=== PATIENT | male | born 1975 | race American Indian/Alaskan Native ===

== ENCOUNTER 2017-04-02 17:13 | Emergency (ER) | payer OTHER, MEDICAID ==
[2017-04-02 17:24] VITALS: TEMP 98.4
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
[2017-04-02 18:50] VITALS: BP 112/71; PULSE 92; RESP 16; O2SAT 95
== END 2017-04-02 18:50 | disposition home or self-care (01) ==
LOC: EDUNIT#
DX: S61.211A Laceration without foreign body of left index finger without damage to nail, initial encounter (principal); S60.221A Contusion of right hand, initial encounter; F17.200 Nicotine dependence, unspecified, uncomplicated; V18.2XXA Unspecified pedal cyclist injured in noncollision transport accident in nontraffic accident, initial encounter

== ENCOUNTER 2017-08-23 14:50 | Emergency (ER) | payer MEDICAID, OTHER ==
[2017-08-23 15:00] VITALS: BP 126/77; PULSE 87; RESP 18; TEMP 98.4; O2SAT 97
--- NOTE | 2017-08-23 15:05 | EDPHY ---
H & P Time Seen by Provider: 08/23/17 15:00 HPI/ROS: HPI Alcohol intoxication. 42-year-old male with [employer] police. Brought in for alcohol intoxication. No history of assault. Acting belligerent with police initially. Has come down since being in the emergency department. He states he he has been drinking hard liquor all day. He is ambulatory in our emergency department. Denies other complaints. ROS: Constitutional: No fever, no chills. No weakness. Respiratory: No cough. No shortness of breath. Cardiac: No chest pain, no palpitations. Gastrointestinal: No abdominal pain, no vomiting, no diarrhea. Musculoskeletal: No back pain. No neck pain. No myalgias or arthralgias. Skin: No lacerations or abrasions. Neurological: No headache. No focal weakness or altered sensation. Past medical history: Schizophrenia, alcohol abuse, Social history: Physical Exam: General Appearance: Alert, intoxicated, strong odor of alcohol on his breath. Disheveled. This patient is responding to questions appropriately albeit with slurred speech. This patient appears well-hydrated and well-nourished. Eyes: Pupils equal and round no pallor or injection. No lid edema, erythema or injection. Respiratory: There are no retractions, lungs are clear to auscultation with good air movement bilaterally. Cardiovascular: Regular rate and rhythm. No murmur. Gastrointestinal: Abdomen is soft and nontender, no masses, bowel sounds normal. No focal tenderness at McBurney's point. No Harper sign. Neurological: Motor sensory function is grossly intact. Cranial nerves are normal. Gait is normal. Skin: Warm and dry, no rashes. Musculoskeletal: Neck is supple and nontender. Extremities are symmetrical. All joints range without pain or impingement. Psychiatric: No agitation. No depression. Database: EKG: Imaging: Procedures: Emergency department course: Vital signs reviewed. At 3:15 p.m., the patient is up and ambulatory to the bathroom under their own power and with a normal gait. The patient is responding to questions appropriately and in full sentences. The liabilities of alcohol abuse have been discussed with this patient. This patient has been medically cleared for discharge to the [facility] with [employer] police or to home with a sober ride. Followup and return to emergency department precautions discussed. All of the patient's questions were answered. The patient was discharged from emergency department in good condition with [employer]. Differential Diagnosis: The differential diagnosis on this patient includes but is not limited to alcohol intoxication. Head injury, other significant traumatic injury unlikely. This represents a partial list of diagnoses considered. These considerations are based on history, physical exam, past history, reassessment and diagnostic testing. Smoking Status: Current every day smoker Constitutional: Initial Vital Signs Temperature (C) 36.9 C 08/23/17 14:56 Heart Rate 87 08/23/17 14:56 Respiratory Rate 18 08/23/17 14:56 Blood Pressure 126/77 H 08/23/17 14:56 O2 Sat (%) 97 08/23/17 14:56 O2 Delivery Mode Room Air Allergies/Adverse Reactions: benztropine Allergy (Intermediate, Verified 06/12/16 23:56) LIGHT HEADED/ DIZZY chlorpromazine Allergy (Intermediate, Verified 06/12/16 23:56) DROOLING clonazepam [From Klonopin] Allergy (Verified 04/02/17 17:21) haloperidol [From Haldol] Allergy (Verified 06/12/16 23:56) haloperidol lactate [From Haldol] Allergy (Verified 06/12/16 23:56) locked jaw Home Medications: Medication Instructions Recorded NK [No Known Home Meds] 03/17/16 Departure - Departure Disposition: Law Enforcement/Court/[facility] Clinical Impression: Alcohol intoxication Condition: Good Instructions: Alcohol Intoxication (ED) Additional Instructions: Read and follow provided instructions. Follow-up with your primary care physician at [facility] when released from detox for re-evaluation. Do not drink alcohol. Return to the emergency department for worsening symptoms or other serious concerns. Referrals: Patient,NotPresent [Primary Care Provider] - As per Instructions
== END 2017-08-23 15:20 ==
LOC: EDUNIT#
DX: F10.129 Alcohol abuse with intoxication, unspecified (principal); F17.200 Nicotine dependence, unspecified, uncomplicated

== ENCOUNTER 2017-11-20 18:04 | Emergency (ER) | payer OTHER ==
--- NOTE | 2017-11-20 18:00 | EDPHY ---
HPI/HX/ROS/PE/MDM Narrative: CHIEF COMPLAINT: Alcohol intoxication, abnormal EKG HPI: The patient is a 46 y/o male arriving via EMS with AMS. EMS was initially called because the patient was intoxicated in public. When EMS arrived they found marijuana and alcohol on the patient. While en route to the Emergency Department the patient was mildly tachycardic with a rate of 122. Patient denies any complaints on arrival, admits to alcohol use. REVIEW OF SYSTEMS: Unable to obtain secondary to AMS PMH: Alcohol abuse, schizophrenia SOCIAL HISTORY: Transient, uses tobacco and marijuana PHYSICAL EXAM: General: Patient is very intoxicated, non-cooperative with exam. ENT: Eyes are normal to inspection. ENT inspection normal. Neck: Normal inspection. Full range of motion. Respiratory: No respiratory distress. Breath sounds normal bilaterally. Cardiovascular: Strong peripheral pulses. Normal cap refill. Skin: Normal color. No rash. Warm and dry. Extremities: Normal appearance. Full range of motion. Neuro: No focal deficits. ED Course: 1824: EKG was ordered and interpreted by myself. Please see [employer] system for official reading. No signs of ACS - LVH with j-point elevation noted. 1844: Reassessed patient, he is still intoxicated. 2145: Patient passed his road test, he will be discharged to the [facility]. General Initial Vital Signs: Initial Vital Signs Temperature (C) 36.5 C 11/20/17 18:15 Heart Rate 109 H 11/20/17 18:15 Respiratory Rate 18 11/20/17 18:15 Blood Pressure 125/100 H 11/20/17 18:15 O2 Sat (%) 91 L 11/20/17 18:15 O2 Delivery Mode Room Air O2 (L/minute) 2 Allergies/Adverse Reactions: benztropine Allergy (Intermediate, Verified 06/12/16 23:56) LIGHT HEADED/ DIZZY chlorpromazine Allergy (Intermediate, Verified 06/12/16 23:56) DROOLING clonazepam [From Klonopin] Allergy (Verified 04/02/17 17:21) haloperidol [From Haldol] Allergy (Verified 06/12/16 23:56) haloperidol lactate [From Haldol] Allergy (Verified 06/12/16 23:56) locked jaw Home Medications: Medication Instructions Recorded NK [No Known Home Meds] 03/17/16 Departure - Departure Disposition: Home, Routine, Self-Care Clinical Impression: Alcohol intoxication Qualifiers: Complication of substance-induced condition: uncomplicated Qualified Code(s): F10.920 - Alcohol use, unspecified with intoxication, uncomplicated Condition: Good Instructions: Alcohol Intoxication (ED), Abuse of Alcohol (ED) Additional Instructions: Please refrain from abusing alcohol. Return to the emergency department immediately for fever, vomiting, confusion, headache, abdominal pain or other worsening of condition. Followup with your primary care physician within 72 hours for reevaluation. Referrals: [facility],. [Clinic] - As per Instructions [facility] [Outside] - As per Instructions Report Scribed for: Mejia Hayden Report Scribed by: Jovana Barragan Date of Report: 11/20/17 Time of Report: 17:59 Physician Review and Approval Statement: Portions of this note were transcribed by an ED scribe. I personally performed the history, physical exam, and medical decision making; and confirm the accuracy of the information in the transcribed note.
[2017-11-20 18:17] VITALS: TEMP 97.7
--- NOTE | 2017-11-20 18:27 | CPEKG ---
Heart Rate: 107 RR Interval: 561 P-R Interval: 156 QRSD Interval: 136 QT Interval: 388 QTC Interval: 518 P [place]: 36 QRS [place]: 71 T Wave [place]: 87 EKG Severity - ABNORMAL ECG - EKG Impression: SINUS TACHYCARDIA EKG Impression: NONSPECIFIC INTRAVENTRICULAR CONDUCTION DELAY EKG Impression: LEFT VENTRICULAR HYPERTROPHY Electronically Signed By: Nestor Bassett 21-Nov-2017 12:58:31
[2017-11-20 18:53] VITALS: RESP 16
[2017-11-20 20:15] VITALS: BP 106/51; PULSE 92; O2SAT 95
== END 2017-11-20 22:19 | disposition home or self-care (01) ==
LOC: EDUNIT#
DX: F10.920 Alcohol use, unspecified with intoxication, uncomplicated (principal); F17.200 Nicotine dependence, unspecified, uncomplicated

== ENCOUNTER 2018-01-10 20:07 | Emergency (ER) | payer SELFPAY ==
[2018-01-10 20:18] VITALS: BP 112/64
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
== END 2018-01-10 20:37 | disposition home or self-care (01) ==
LOC: EDUNIT#
DX: E16.2 Hypoglycemia, unspecified (principal); F10.920 Alcohol use, unspecified with intoxication, uncomplicated; F17.200 Nicotine dependence, unspecified, uncomplicated

== ENCOUNTER 2018-11-25 13:44 | Emergency (ER) | payer MEDICAID ==
--- NOTE | 2018-11-25 15:22 | EDPHY ---
H & P Stated Complaint: Generalised rash. ETOH. Time Seen by Provider: 11/25/18 15:13 HPI/ROS: CHIEF COMPLAINT: Itching, concern for scabies HISTORY OF PRESENT ILLNESS: Patient is a 43-year-old homeless alcoholic man who was sent from the alcohol recovery Center with concern for scabies. He has pruritic rash that he has been scratching for several days. It does seem to be auto an ocular in. No fevers. No purulence. Severity: Moderate Modifying factors: None REVIEW OF SYSTEMS: Constitutional: denies: chills, fever, recent illness, recent injury EENTM: denies: blurred vision, double vision, nose congestion Respiratory: denies: cough, shortness of breath Cardiac: denies: chest pain, irregular heart rate, lightheadedness, palpitations Gastrointestinal/Abdominal: denies: abdominal pain, diarrhea, nausea, vomiting, blood streaked stools Genitourinary: denies: dysuria, frequency, hematuria, pain Musculoskeletal: denies: joint pain, muscle pain Skin: See HPI Neurological: denies: headache, numbness, paresthesia, tingling, dizziness, weakness Hematologic/Lymphatic: denies: blood clots, easy bleeding, easy bruising Immunologic/allergic: denies: HIV/AIDS, transplant 10 systems reviewed and negative except as noted EXAM: GENERAL: Well-appearing, well-nourished and in no acute distress. HEAD: Atraumatic, normocephalic. EYES: Pupils equal round and reactive to light, extraocular movements intact, sclera anicteric, conjunctiva are normal. ENT: TMs normal, nares patent, oropharynx clear without exudates. Moist mucous membranes. NECK: Normal range of motion, supple without lymphadenopathy or JVD. LUNGS: Breath sounds clear to auscultation bilaterally and equal. No wheezes rales or rhonchi. HEART: Regular rate and rhythm without murmurs, rubs or gallops. ABDOMEN: Soft, nontender, normoactive bowel sounds. No guarding, no rebound. No masses appreciated. BACK: No CVA tenderness, no spinal tenderness, step-offs or deformities EXTREMITIES: Normal range of motion, no pitting or edema. No clubbing or cyanosis. NEUROLOGICAL: Cranial nerves II through XII grossly intact. Normal speech, normal gait. 5/5 strength, normal movement in all extremities, normal sensation , normal reflexes PSYCH: Normal mood, normal affect. SKIN: Patient has linear lesion with excoriation. Possibly burrows that are linear in curved and slightly elevated. The mostly involve the arms and legs. Some in the hands as well. Source: Patient Exam Limitations: No limitations - Personal History Current Tetanus Diphtheria and Acellular Pertussis (TDAP): Unsure Tetanus Vaccine Date: < 10 YEARS - Medical/Surgical History Hx Asthma: No Hx Chronic Respiratory Disease: No Hx Diabetes: No Hx Cardiac Disease: No Hx Renal Disease: No Hx Cirrhosis: No Hx Alcoholism: Yes Hx HIV/AIDS: No Hx Splenectomy or Spleen Trauma: No Other PMH: ETOH. - Social History Smoking Status: Current every day smoker Constitutional: Initial Vital Signs Temperature (C) 36.9 C 11/25/18 13:57 Heart Rate 105 H 11/25/18 13:57 Respiratory Rate 18 11/25/18 13:57 Blood Pressure 111/79 11/25/18 13:57 O2 Sat (%) 94 11/25/18 13:57 O2 Delivery Mode Room Air Allergies/Adverse Reactions: benztropine Allergy (Intermediate, Verified 01/10/18 20:18) LIGHT HEADED/ DIZZY chlorpromazine Allergy (Intermediate, Verified 01/10/18 20:18) DROOLING clonazepam [From Klonopin] Allergy (Verified 01/10/18 20:18) haloperidol [From Haldol] Allergy (Verified 01/10/18 20:18) haloperidol lactate [From Haldol] Allergy (Verified 01/10/18 20:18) locked jaw Home Medications: Medication Instructions Recorded NK [No Known Home Meds] 03/17/16 Risperdal 02/11/18 Medical Decision Making ED Course/Re-evaluation: The patient does have symptoms consistent with scabies. I spoke with the pharmacy and will give him a single dose of ivermectin for treatment. He is excited about this plan. He declines further workup or testing at this time. To order the Ivermectin I 1st spoke with the pharmacist and then to the Infectious Disease doctor. This was approved and given. Differential Diagnosis: Partial list of the Differential diagnosis considered include but were not limited to; scabies, eczema, cellulitis, allergic reaction and although unlikely based on the history and physical exam, I also considered sepsis, foreign body. I discussed these differential diagnoses and the plan with the patient as well as the usual and expected course. The patient understands that the diagnosis is provisional and that in medicine we are not always correct and that further workup is often warranted. Usual and customary warnings were given. All of the patient's questions were answered. The patient was instructed to return to the emergency department should the symptoms at all worsen or return, otherwise to followup with the physician as we discussed. - Data Points Medications Given: Discontinued Medications Ivermectin (Ivermectin) 15 mg PO ONCE ONE Stop: 11/25/18 16:01 Last Admin: 11/25/18 16:01 Dose: 15 mg Departure - Departure Disposition: Home, Routine, Self-Care Clinical Impression: Scabies infestation Condition: Fair Instructions: Scabies (ED) Referrals: NONE *PRIMARY CARE P,. [Primary Care Provider] - As per Instructions [facility],. [Clinic] - As per Instructions
[2018-11-25] MEDS ORDERED: IVERMECTIN 3 MG TAB PO ONE (16:00)
[2018-11-25 16:09] VITALS: BP 110/78
== END 2018-11-25 16:09 | disposition home or self-care (01) ==
LOC: EDUNIT#
DX: B86 Scabies (principal); F10.10 Alcohol abuse, uncomplicated; Z59.0 Homelessness

== ENCOUNTER 2018-12-03 00:55 | Emergency (ER) | payer MEDICAID ==
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
[2018-12-03 07:28] VITALS: BP 119/77
== END 2018-12-03 07:32 | disposition home or self-care (01) ==
LOC: EDUNIT#
DX: S02.2XXA Fracture of nasal bones, initial encounter for closed fracture (principal); Y04.8XXA Assault by other bodily force, initial encounter; F10.920 Alcohol use, unspecified with intoxication, uncomplicated; Y90.7 Blood alcohol level of 200-239 mg/100 ml; Z59.0 Homelessness

== ENCOUNTER 2018-12-03 20:40 | Emergency (ER) | payer MEDICAID ==
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
[2018-12-03] MEDS ORDERED: CHLORDIAZEPOXIDE 25MG PREPK#6 BTL TAKEHOME ONE (21:53)
[2018-12-03 22:03] VITALS: BP 118/72
== END 2018-12-03 22:02 | disposition home or self-care (01) ==
DX: S02.2XXA Fracture of nasal bones, initial encounter for closed fracture (principal); F10.129 Alcohol abuse with intoxication, unspecified; Z59.0 Homelessness